=== PATIENT | male | born 1980 | race Caucasian/White ===

== ENCOUNTER 2019-08-02 00:34 | Emergency (ER) | payer BC, SELFPAY ==
[2019-08-02] VITALS (10 sets, daily range): BP systolic 94–113; BP diastolic 64–77; PULSE 90–115; RESP 12–19; TEMP 36.7–36.8; O2SAT 95–100
--- NOTE | ~2019-08-02 | XR_ITS ---
EXAMINATION: XR foot RT min 3V DATE: 08/02/2019 01:46 INDICATION: Wound at the right foot TECHNIQUE: Dorsoplantar, two oblique and lateral views of the right foot were obtained. COMPARISON: None. FINDINGS: Loss of soft tissue coverage at the heel with suggestion of skin ulceration. There is a small region with loss of the linear cortical margin at the medial side of the plantar aspect of the posterior brenda caneus seen only on the supinated oblique projection which is suspicious for osteomyelitis. Likely os teotomy for hammertoe correction at the head of the second proximal phalanx with slight plantar sublu xation at the proximal interphalangeal joint. Bone alignment is otherwise normal. No fracture. Mild p olyarticular osteoarthritis involving scattered joints throughout the foot. Diffuse osteopenia. Soft tissue swelling throughout the right foot. IMPRESSION: 1. Subtle loss of a well-defined cortical margin at the medial plantar aspect of the posterior calcan eus suspicious for osteomyelitis. Reviewed, dictated and finalized at location A. IMPRESSION: 1. Subtle loss of a well-defined cortical margin at the medial plantar aspect o f the posterior calcaneus suspicious for osteomyelitis.
--- NOTE | ~2019-08-02 | XR_ITS ---
EXAMINATION: XR foot LT min 3V DATE: 08/02/2019 01:46 INDICATION: Left foot wound TECHNIQUE: Dorsoplantar, two oblique and lateral views of the left foot were obtained. COMPARISON: None. FINDINGS: There is loss of soft tissue coverage at the heel with suggestion of a large skin ulceration. There i s cortical erosion along the plantar surface of the posterior calcaneus consistent with osteomyelitis . Prior resection of the head of the second proximal phalanx which may be for hammertoe correction. B one alignment is normal. No fracture. Mild osteoarthritis at the first tarsal metatarsal joint. Diffu se soft tissue swelling throughout the foot. IMPRESSION: 1. Osteomyelitis of the plantar aspect of the posterior calcaneus. Reviewed, dictated and finalized at location A.
--- NOTE | ~2019-08-02 | XR_ITS ---
EXAMINATION: XR chest PICC line DATE: 08/02/2019 01:46 INDICATION: PICC line placement TECHNIQUE: frontal view of the chest was obtained. COMPARISON: None FINDINGS: Right upper extremity peripherally inserted central venous catheter (PICC) tip at the right axillary vein. Increased right hilar and infrahilar opacities. Scattered bronchial wall thickening. No pleural effus ion or pneumothorax. The cardiomediastinal silhouette is normal. Postoperative changes in the lumbar and lower thoracic spine including a vertical flory and pedicle screw fixation for posterior spinal fus ion which appears to span the site of prior corpectomy with interbody fusion device. IMPRESSION: 1. Right hilar/infrahilar lung disease with bronchial wall thickening which could represent pulmonary edema or bronchitis/pneumonia. Reviewed, dictated and finalized at location A. IMPRESSION: 1. Right hilar/infrahilar lung disease with bronchial wall thickening which cou ld represent pulmonary edema or bronchitis/pneumonia.
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
--- NOTE | 2019-08-02 00:54 | ECG_ITS ---
Measurements Intervals [place] Rate: 105 P: 60 [place]: 130 QRS: 86 QRSD: 90 T: 65 QT: 306 QTc: 404 Interpretive Statements SINUS TACHYCARDIA NONSPECIFIC ST & T-WAVE ABNORMALITY- INF/LAT LEADS BASELINE ARTIFACT- I, II, AVR, AVL, AVF, V1-V2 ABNORMAL ECG Electronically Signed On 08-02-2019 7:21:09 CDT by Jeremy Benoit D.O.
[2019-08-02 02:14] LABS: Basophils Percent Auto 0.5 % (0.2-1.2); Eosinophils Absolute Auto 0.2 K/mm3 (0-0.3); Eosinophils Percent Auto 5.1 % (0-4.4); Hematocrit 24.1 % (42.0-52.0); Immature Granulocyte Absolute 0.01 K/mm3 (0.00-0.031); Immature Granulocyte Percent A 0.3 % (0-0.5); Lymphocytes Absolute Auto 1.26 K/mm3 (0.9-3.2); Lymphocytes Percent Auto 32.1 % (18.3-44.2); Mean Corpuscular HGB Conc 28.2 g/dl (32-36); Mean Corpuscular Hemoglobin 25.2 pg (26-34); Mean Corpuscular Volume 89.3 fl (80-100); Mean Platelet Volume 9.5 fl (7.4-10.4); Monocytes Absolute Auto 0.5 K/mm3 (0.1-0.6); Platelet Count Result 352 k/mm3 (150-375); Red Cell Distribution Width 19.9 % (11.5-14.5); White Blood Count 3.9 K/mm3 (4.5-10.0)
[2019-08-02 02:24] LABS: INR 1.1; Prothrombin Time 13.6 Seconds (11.1-14.7)
[2019-08-02 02:26] LABS: Hemoglobin 6.8 g/dL (14.0-18.0)
[2019-08-02 02:28] LABS: Alanine Aminotransferase 10 U/L (4-50); Albumin Level 2.2 g/dL (3.5-5.1); Alkaline Phosphatase 128 U/L (38-126); Aspartate Amino Transferase 17 U/L (17-59); Bilirubin,Total < 0.1 mg/dL (0.2-1.3); Blood Urea Nitrogen 8 mg/dL (9-20); Calcium 7.3 mg/dL (8.4-10.2); Carbon Dioxide 28 mmol/L (22-30); Chloride 103 mmol/L (98-107); Estimated Glomerular Filt Rate > 60; Glucose 94 mg/dL (75-110); Lactic Acid Reflex 1.3 mmol/L (0.7-2.1); Potassium 2.9 mmol/L (3.4-5.0); Sodium 133 mmol/L (137-145)
[2019-08-02 02:31] LABS: Hypochromasia 1+ (NORMAL); Platelet Estimate Adequate (Adequate)
[2019-08-02 02:32] LABS: Macrocytosis 1+ (NORMAL); Microcytosis 1+ (NORMAL)
[2019-08-02 02:37] LABS: NT Pro B Type Natriuretic Pept 892 PG/ML (5-100)
[2019-08-02] MEDS: POTASSIUM CHLORIDE 20 MEQ TABLET 40 MEQ PO (02:38)
[2019-08-02] MEDS: SODIUM CHLORIDE 0.9% IV 1,000 ML 999 ML IV CONT (03:26)
--- NOTE | 2019-08-02 05:28 | PC.NURSE ---
Spoke to [facility] at this time. Still waiting on available beds.
--- NOTE | 2019-08-02 06:27 | PC.NURSE ---
Report given to DA Whitt at [facility] at this time.
--- NOTE | 2019-08-02 06:36 | PC.NURSE ---
Called [facility] for ALS transport to [facility]. ETA 0800 - 0830. Trip #[id number]. Called and spoke with Renee @ the 'Admit Line', told her the ETA provided by [facility]. Also, called [facility]. They declined. Will not be available for transports until approximately 0830 and then only BLS.
--- NOTE | 2019-08-02 07:36 | PC.NURSE ---
Assumed care of pt, pt is resting at this time - alert to verbal stimuli. Discussed POC w/ pt. Lights dimmed. Transfer in route and here aprox 0830 per Christofer ROBERSON. VSS.
== END 2019-08-02 09:40 | disposition short-term general hospital (02) ==
PROVIDERS: Emergency Provider Emergency Medicine
DX: L03.116 Cellulitis of left lower limb (principal); L03.115 Cellulitis of right lower limb; L89.154 Pressure ulcer of sacral region, stage 4; T14.8XXS Other injury of unspecified body region, sequela; G82.20 Paraplegia, unspecified; M86.9 Osteomyelitis, unspecified; V89.2XXS Person injured in unspecified motor-vehicle accident, traffic, sequela
CPT/HCPCS: 36415; 73630; 80053; 83605; 83880; 85025; 85610; 85730; 86850; 86880; 86900; 86901; 87040; 93005; 96360; 99285; A9270; J7030